=== PATIENT | female | born 1955 ===

== ENCOUNTER 2022-09-20 14:43 | Outpatient (REF) | payer OTHER, SELFPAY ==
[2022-09-20 16:54] LABS: MANUAL DIFF FLAG NO
[2022-09-20 16:55] LABS: Basophils Absolute Auto 0.1 X10*3/uL (0.0-0.2); Basophils Percent Auto 1.5 % (0-2); Eosinophils Absolute Auto 0.1 X10*3/uL (0.0-0.4); Eosinophils Percent Auto 1.7 % (0-4); Hematocrit 44.3 % (37.0-47.0); Hemoglobin 14.6 g/dl (12.0-16.0); Imm Gran Abs Auto 0.01 X10*3/uL (0.00-0.03); Imm Gran Pct Auto 0.2 % (0.0-0.4); Lymphocytes Percent Auto 37.4 % (20-40); Mean Corpuscular Volume 91.2 fL (80.0-98.0); Mean Platelet Volume 11.5 fL (9.4-12.3); Monocytes Absolute Auto 0.4 X10*3/uL (0.1-1.2); Monocytes Percent Auto 7.4 % (2-11); Neutrophils Absolute Auto 2.8 x10*3/uL (2.0-8.3); Neutrophils Percent Auto 51.8 % (45-73); Platelet Count 280 X10*3/uL (160-400); Red Blood Count 4.86 X10*6/uL (4.20-5.50); Red Cell Distribution Width 13.5 % (11.0-16.0); White Blood Count 5.4 X10*3/uL (4.8-10.8)
[2022-09-20 17:32] LABS: Alanine Aminotransferase 16 U/L (0-31); Albumin Level 4.5 g/dL (3.5-5.0); Alkaline Phosphatase 80 U/L (39-117); Anion Gap 15 (12-20); Aspartate Amino Transferase 24 U/L (5-31); Bilirubin Total 0.5 mg/dL (0.0-1.0); Blood Urea Nitrogen 17 mg/dL (9-16); Calcium 9.8 mg/dL (8.4-10.2); Carbon Dioxide 25 mmol/L (22-29); Chloride 105 mmol/L (96-108); Cholesterol 221 mg/dL; Estimated Glomerular Filt Rate > 60; Glucose Random 87 mg/dL (60-115); HDL Cholesterol 62 mg/dL; LDL Cholesterol Calculated 145 mg/dl; Potassium 4.1 mmol/L (3.3-5.1); Sodium 141 mmol/L (135-145); Total Protein 7.4 g/dL (6.5-8.0); Triglycerides 71 mg/dL
[2022-09-20 17:48] LABS: Thyroid Stimulating Hormone 1.06 uIU/mL (0.32-4.0)
== END 2022-09-20 14:44 | disposition home or self-care (01) ==
LOC: HO.HMGCLDS 14:43
PROVIDERS: Visit Provider Internal Medicine
DX: Z00.00 Encounter for general adult medical examination without abnormal findings (principal); E03.8 Other specified hypothyroidism; F31.9 Bipolar disorder, unspecified; I10 Essential (primary) hypertension; F43.12 Post-traumatic stress disorder, chronic; Z72.0 Tobacco use
CPT/HCPCS: 36415; 80053; 80061; 84443; 85025

== ENCOUNTER 2024-01-04 16:04 | Outpatient (AMB) | payer OTHER, SELFPAY ==
--- NOTE | 2024-01-04 16:06 | A.OFFPC_ITS ---
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 Savings Teller Required: No Accompanied by: Daughter Allergies Penicillins Allergy (Severe, Verified 01/04/24 16:50) Hives Medication List - Last Reconciled 01/04/24 by Camacho Dickey MD amlodipine 2.5 mg PO DAILY aspirin (Aspirin Childrens) 81 mg PO DAILY atorvastatin 80 mg PO BEDTIME levothyroxine 75 mcg PO DAILY paroxetine HCl 20 mg PO DAILY Tobacco use date assessed: 01/04/24 Fall risk assessment: 1 Fall in past year Last assessed Fall Risk: 01/04/24 Dental Screening Dental Screen Date: 01/04/24 Did you have a dental visit in the last 12 months?: No Did you have a dental problem in the last 6 months where you did not have access to dental care?: No Was dental information given to patient?: Patient has dentist HPI Research 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 and also had some involvement of her right eye, as she reports that she is still having double vision and is currently wearing an eye patch on her right eye to help minimize her symptoms Recalls that she was at a family gathering early last month when she did not feel good (thinks she had a headache, among other issues) and went and lied down for the remainder of the gathering She was eventually brought home that evening and she supposedly went straight to bed Her daughter states that she could not reach patient the next day and went over to her house to check on her and found her in bed Relates that patient told her she tried to get up earlier that day and felt like she was shaking and bouncing all over so she went back to lying down Her daughter noted that her mother did not look good at the time (felt that her eyes looked glazed over) and she brought her to the ER at [facility], where work ups revealed that she had a CVA - was told that she had a bleed into her brain She supposedly spent the next week (from 11/29/23 to 12/06/23) at the hospital and was then transferred to short-term rehab at [facility] where she spent the next week (12/06/23 to 12/13/23) doing physical therapy She continues to get physical therapy at home presently She has a follow up appointment with neuro-ophthalmology at [facility] in a couple of weeks on 01/21/2024 and has an upcoming appointment with cardiology as well, presumably to work her up further to find out the exact etiology of her recent CVA She is presently on low dose Aspirin 81 mg QD, high dose statin Tx with Atorvastatin 80 mg QD, Amlodipine 2.5 mg QD, and Levothyroxine 75 mcg QD - states that she will need her Levothyroxine Rx refilled today States that her TFTs were just checked last month and came out okay Her Paroxetine was also raised from her previous dose of 10 mg to 20 mg QD Patient states that she currently feels okay but still has residual right-sided weakness and diplopia She denies any headaches or dizziness Denies any chest pains, no SOB No nausea/vomiting, no abdominal pain No change in bowel habits noted [facility] Medical History (Updated 01/04/24 @ 19:14 by Camacho Dickey MD) Overweight (BMI 25.0-29.9) Depression Acquired hypothyroidism Pure hypercholesterolemia Essential hypertension Hemiparesis affecting right side as late effect of cerebrovascular accident (CVA) CVA (cerebral vascular accident) Surgical History (Updated 01/04/24 @ 19:02 by Camacho Dickey MD) No pertinent past surgical history Family History (Updated 01/04/24 @ 19:02 by Camacho Dickey MD) Other Family history non-contributory Social History Housing: House Patient Tobacco Use Status: Former Tobacco user Tobacco use type: Cigarette Years Smoked: 25+ service: No Current occupational status: disabled Cognitive needs: Yes (cane ) Hearing needs: No Vision needs: Yes Questionnaire PHQ-9 Over the last 2 weeks, how often have you been bothered by any of the following problems? 1. Little interest or pleasure in doing things: not at all 2. Feeling down, depressed, or hopeless: not at all 3. Trouble falling or staying asleep, or sleeping too much: not at all 4. Feeling tired or having little energy: not at all 5. Poor appetite or overeating: not at all 6. Feeling bad about yourself - or that you are a failure or have let yourself or your family down: not at all 7. Trouble concentrating on things, such as reading the newspaper or watching television: not at all 8. Moving or speaking so slowly that other people could have noticed. Or the opposite - being so fidgety or restless that you have been moving around a lot more than usual: not at all 9. Thoughts that you would be better off or of hurting yourself in some way: not at all Total score: 0 Depression Screening Interpretation: Negative (is on Rx) Depression Screening Done: Yes 92301 - PHQ-9 Billing: Yes Source: Developed by Drs. Edmundo Ortiz, Joanna Steen, Shree Crum and colleagues, with an educational rani from [employer]. Thrive Questionnaire Date Thrive assessed: 01/04/24 I am a: Patient What is your living situation today?: I have a steady place to live Within the past 12 months, did the food you bought not last and you didn't have the money to get more?: Never true Within the past 12 months, did you worry whether your food would run out before you got money to buy more?: Never true Do you have trouble paying for medicines?: No Do you have trouble getting transportation to medical appointments?: No Do you have trouble paying your heating and electricity bill?: No Do you have trouble taking care of your child, family member or friend?: No Do you have trouble with day-to-day activities such as bathing, preparing meals, shopping, managing finances, etc.?: No Are you currently unemployed and looking for a job?: No Are you interested in more education?: No Please select the resources that you would like help with: None Currently or been in a relationship where the following occur: No concerns reported THRIVE Score: 0 AUDIT C Alcohol Use Questionnaire (AUDIT-C) 1. How often do you have a drink containing alcohol?: Never 2. How many drinks containing alcohol do you have on a typical day when you are drinking?: 1 or 2 (0) 3. How often do you have six or more drinks on one occasion?: Never Total Score: 0 Score Reviewed/Action Taken: Yes WANDA-7 AMB Questionnaire WANDA-7 Date WANDA - 7 assessed: 01/04/24 Feeling nervous, anxious, or on edge: 0 = Not at all Not being able to stop or control worryin = Not at all Worrying too much about different things: 0 = Not at all Trouble relaxin = Not at all Being so restless that it is hard to sit still: 0 = Not at all Becoming easily annoyed or irritable: 0 = Not at all Feeling afraid as if something awful might happen: 0 = Not at all Total WANDA-7 score (0-4 normal; 5-9 mild; 10-14 moderate; 15-21 severe): 0 Source: Developed by Drs. Edmundo Ortiz, Joanna Steen, Shree Crum and colleagues, with an educational rani from [employer]. WANDA-7 Assessment Billing WANDA-7 Assessment Tool: WANDA-7 Assessment 18797 Review of Systems Const Denies chills, Denies fatigue, Denies fever(s) and Denies headache(s) Eyes Reports diplopia ENT Denies dysphagia, Denies dizziness, Denies otalgia, Denies headache(s), Denies neck pain, Denies odynophagia and Denies sore throat Card Denies chest pain, Denies palpitations and Denies dyspnea Resp Denies cough and Denies dyspnea GI Denies abdominal pain, Denies constipation, Denies dysphagia, Denies heartburn, Denies diarrhea, Denies nausea, Denies odynophagia and Denies vomiting Denies difficulty voiding, Denies nocturia and Denies dysuria Musc Denies back pain and Denies neck pain Skin/Breast Denies rash Neuro Details: (+) right hemiparesis Denies dizziness and Denies headache(s) Endo Denies fatigue and Denies palpitations Physical exam (Primary Care) Vital Signs: Last Vital Signs Pulse 76 01/04/24 16:12 BP 112/76 01/04/24 16:12 Pulse Ox 95 01/04/24 16:12 Oxygen Delivery Method Room Air 01/04/24 16:12 BMI result Body Mass Index 27.1 Tobacco/Smoking Status: Tobacco use Status Tobacco use date assessed 01/04/24 01/04/24 16:10 Patient Tobacco Use Status Former Tobacco user 01/04/24 16:18 Tobacco use type Cigarette 01/04/24 16:18 PHQ-9: PHQ-9 Score PHQ-9: Total score 0 01/04/24 17:08 Depression Screening Interpretation: Negative (is on Rx) Thrive Assessment: Date of Thrive Assessment Date Thrive assessed 01/04/24 01/04/24 16:10 Currently or been in a relationship where the following occur: No concerns reported Const General: no acute distress and alert Orientation/consciousness: patient oriented x3 HENMT Ears: TM's normal bilaterally and EAC's normal Throat: Yes posterior oropharynx normal and Yes tonsils normal (no TP congestion) Eyes Other: (+) eye patch over the right eye Neck Neck: Yes no lymphadenopathy and Yes supple Thyroid: Thyroid normal Resp Auscultation: clear to auscultation bilaterally, no rales and no wheezes Cardio Rate: regular rate Rhythm: regular rhythm Heart sounds: Murmur heart sound present (?) systolic soft (?) and I/ GI Palpation (GI): Soft to palpation and nontender Auscultation: normal bowel sounds General: Yes no CVA tenderness Back/Spine/Pelvis Back: no CVA tenderness Skin General skin exam: no rashes or lesions noted Neuro Other: (+) right-sided hemiparesis General: patient oriented x3 Cognition (Neuro): normal cognition Extrem General: Yes no clubbing, cyanosis or edema Assessment and Plan Assessment & Plan (1) CVA (cerebral vascular accident): Comment: currently still has right-sided hemiparesis and diplopia (involving the right eye) Code(s): I63.9 - Cerebral infarction, unspecified Qualifiers: CVA mechanism: unspecified Qualified Code(s): I63.9 - Cerebral infarc tion, unspecified Plan: S/P CVA a month ago in November 2023 - patient apparently suffered a hemorrhagic CVA and now has residual diplopia (involving the right eye) as well as right-sided hemiparesis She will be seeing cardiology in a week or two for further evaluation of the etiology of her CVA and she has appointment as well with neuro-ophthalmology for her right eye issues Patient currently appears to have a soft systolic murmur (?) on auscultation - could be just a flow murmur and this may be clarified once we receive her records from [facility] (which presumably would include an echocardiogram) for review Continue Aspirin 81 mg QD Will refer her as well to neurology for further evaluation and management (2) Hemiparesis affecting right side as late effect of cerebrovascular accident (CVA): Code(s): I69.351 - Hemiplegia and hemiparesis following cerebral infarction affecting right dominant side Plan: Patient went to short-term rehab at [facility] from 12/07/23 to 12/13/23 and now continues to receive home physical therapy through [facility] (3) Essential hypertension: Code(s): I10 - Essential (primary) hypertension Plan: Reinforced low sodium diet - goal is systolic BP of 120 mm or less Continue Amlodipine 2.5 mg QD (4) Pure hypercholesterolemia: Code(s): E78.00 - Pure hypercholesterolemia, unspecified Plan: Reinforced low cholesterol diet Continue Atorvastatin 80 mg QD Will have patient recheck her labs and fasting lipids in 2 to 3 months for follow up (5) Acquired hypothyroidism: Code(s): E03.9 - Hypothyroidism, unspecified Plan: Patient states that she was advised her TFTs done at [facility] last month came out normal Continue Levothyroxine 75 mcg QD - Rx refilled Will recheck his TFTs in 2 to 3 months for follow up (6) Depression: Code(s): F32.A - Depression, unspecified Qualifiers: Depression Type: major depressive disorder Major depression recurrence: recurrent Active/Remission status: currently active Major depression episode severity: unspecified Qualified Code(s): F33.9 - Major depressive disorder, recurrent, unspecified Plan: Continue Paroxetine 20 mg QD (7) Overweight (BMI 25.0-29.9): Code(s): E66.3 - Overweight Plan: Reinforced diet; exercise (and weight loss) may be unrealistic at this time given patient's recent CVA and right-hemiparesis although she is getting home physical therapy regularly Plan Follow up in 2 to 3 months Her physical therapy was again deferred today and will schedule it at a later date, once all of patient's acute issues, including her recent CVA, are addressed adequately Orders: Orders Comprehensive [place]. Panel Fast 2 Months E78.00 - Pure hypercholesterolemia, unspecified UA CC w/rflx Micro + Cult 2 Months R30.0 - Dysuria Vitamin D 25-OH Total 2 Months E55.9 - Vitamin D deficiency, unspecified Free T4 (Free Thyroxine) 2 Months E03.9 - Hypothyroidism, unspecified Thyroid Stimulating Hormone 2 Months E03.9 - Hypothyroidism, unspecified Complete Blood Count Auto Diff 2 Months D64.9 - Anemia, unspecified Lipid Panel 2 Months E78.00 - Pure hypercholesterolemia, unspecified Referrals Neurology Referral I63.9 - Cerebral infarction, unspecified, I69.351 - Hemiplegia and hemiparesis following cerebral infarction affecting right dominant side Medications: New levothyroxine 75 mcg PO DAILY 90 tabs 1RF 90 days Coding Level of Care Code New Pt Level 4 (80183) Complex EM visit Add On G2211 Diagnoses Cerebrovascular accident (CVA), unspecified mechanism I63.9 CVA mechanism: unspecified Hemiparesis affecting right side as late effect of cerebrovascular accident (CVA) I69.351 Essential hypertension I10 Pure hypercholesterolemia E78.00 Acquired hypothyroidism E03.9 Episode of recurrent major depressive disorder, unspecified depression episode severity F33.9 Depression Type: major depressive disorder Major depression recurrence: recurrent Active/Remission status: currently active Major depression episode severity: unspecified Overweight (BMI 25.0-29.9) E66.3 Additional Codes WANDA-7 Assessment Billing - WANDA-7 Assessment Tool: WANDA-7 Assessment 92323 ([id number])
[2024-01-04 16:12] VITALS: BP 112/76; PULSE 76; O2SAT 95; BMI 27.1
== END 2024-01-04 17:14 | disposition home or self-care (01) ==
PROVIDERS: PCP Internal Medicine; Visit Provider Internal Medicine
DX: I69.351 Hemiplegia and hemiparesis following cerebral infarction affecting right dominant side (principal); F33.9 Major depressive disorder, recurrent, unspecified; I10 Essential (primary) hypertension; E78.00 Pure hypercholesterolemia, unspecified; E03.9 Hypothyroidism, unspecified; E66.3 Overweight
CPT/HCPCS: 99204; G2211

== ENCOUNTER 2024-02-11 14:33 | Outpatient (AMB) | payer OTHER, SELFPAY ==
[2024-02-11 14:39] VITALS: BP 110/62; PULSE 61; BMI 27.5
--- NOTE | 2024-02-11 14:39 | A.OFFVIS_ITS ---
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 [employer] Supervisor Required: No Accompanied by: Daughter Allergies Penicillins Allergy (Severe, Verified 01/18/24 12:11) Hives Medication List - Last Reconciled 02/11/24 by Liban Saleem MD amlodipine 2.5 mg PO DAILY aspirin (Aspirin Childrens) 81 mg PO DAILY atorvastatin 80 mg PO BEDTIME levothyroxine 75 mcg PO DAILY 90 days paroxetine HCl 20 mg PO DAILY HPI Comments Details: Thank you for referring Aure in cardiology consultation today for evaluation for cardioembolic CVA. Patient was admitted [facility] with altered mental status and speech abnormality as per the daughter and subsequently found to have bilateral as well as posterior circulation CVA. She was subsequently seen by Neurology and there was concern raised for cardioembolic CVA. She underwent echocardiogram at outside hospital which has been reported to have no significant abnormality. She has prior history of hypertension. She denies any history of irregular heartbeat or palpitations or fast heart rate. Denies any symptoms of chest pain. She is currently still recuperating from a CVA and still has impaired visual abnormality as well as some weakness in his left lower extremity. [facility] Medical History Overweight (BMI 25.0-29.9) Depression Acquired hypothyroidism Pure hypercholesterolemia Essential hypertension Hemiparesis affecting right side as late effect of cerebrovascular accident (CVA) CVA (cerebral vascular accident) Surgical History No pertinent past surgical history Family History Other Family history non-contributory Social History Housing: House Patient Tobacco Use Status: Former Tobacco user Tobacco use type: Cigarette Years Smoked: 25+ service: No Current occupational status: disabled Cognitive needs: Yes (cane ) Hearing needs: No Vision needs: Yes Review of Systems Const Denies chills, Denies fatigue, Denies fever(s), Denies frequent falls, Denies weakness, Denies weight gain and Denies weight loss ENT Denies dizziness Card Denies chest pain, Denies leg edema, Denies lightheadedness, Denies palpitations, Denies dyspnea and Denies dyspnea on exertion Resp Denies cough, Denies dyspnea and Denies dyspnea on exertion GI Denies hematochezia Musc Denies abnormal gait, Denies muscle weakness, Denies numbness, Denies radiating pain into limb and Denies tingling Neuro Denies abnormal gait, Denies dizziness, Denies frequent falls, Denies numbness, Denies tingling and Denies weakness Endo Denies fatigue and Denies palpitations Physical Exam Vital Signs: Last Vital Signs Pulse 61 02/11/24 14:39 BP 110/62 02/11/24 14:39 BMI result Body Mass Index 27.5 Const General: cooperative, comfortable, no acute distress, alert and awake Nutritional Appearance: overweight Orientation/consciousness: patient oriented x3 Limitations: ambulation with cane HEENT Head: Yes normocephalic, Yes atraumatic and Yes other (Wearing an eye patch on the left eye) Neck Neck: Yes trachea midline, Yes supple and Yes no JVD Resp Effort & Inspection: normal respiratory effort Auscultation: clear to auscultation bilaterally Cardio Jugular venous distension: no JVD Palpation: normal PMI Rate: regular rate Rhythm: regular rhythm Heart sounds: S1 normal heart sound present, S2 normal heart sound present, no click, no gallops, no murmurs and no rubs GI Auscultation: normal bowel sounds Skin General skin exam: no rashes or lesions noted Neuro General: patient oriented x3 and other (Right hemiparesis) Extrem General: Yes no clubbing, cyanosis or edema Office Procedures EKG Details: EKG shows normal sinus rhythm with normal EKG [id number], Complete Assessment & Plan Assessment & Plan (1) CVA (cerebral vascular accident): Comment: currently still has right-sided hemiparesis and diplopia (involving the right eye) Code(s): I63.9 - Cerebral infarction, unspecified Category: Medical Qualifiers: CVA mechanism: unspecified Qualified Code(s): I63.9 - Cerebral infarction, unspecified Plan: CVA with involvement multiple cerebral circulations, suspected to be cardioembolic. Echocardiogram as reported from neurology note was within normal limits. Consider SANJU. However given her age and risk factors atrial fibrillation is likely. She has no obvious symptoms although we discussed association of atrial fibrillation with stroke. It is reasonable to pursue implantable loop recorder placement. This was discussed with her. Rationale for implantable loop recorder was discussed. She understands agrees. If she h as any evidence of atrial fibrillation she would strongly benefit from anticoagulation therapy. We discussed the risks, benefits, alternatives to placement of implantable loop recorder. She understands agrees. Will be scheduled in near future. Will follow-up after implantable loop recorder placement for wound check. Coding Level of Care Code New Pt Level 4 (01984) Diagnoses Cerebrovascular accident (CVA), unspecified mechanism I63.9 CVA mechanism: unspecified CPT Codes EKG - CPT: 13831-[id number], Complete ([id number])
== END 2024-02-11 15:06 | disposition home or self-care (01) ==
PROVIDERS: PCP Internal Medicine; Visit Provider Internal Medicine Cardiovascular Disease
DX: I63.9 Cerebral infarction, unspecified (principal)
CPT/HCPCS: 93010; 99204

== ENCOUNTER → 2024-02-11 14:33 | Outpatient (BNVA) | payer OTHER, SELFPAY | PROVIDERS: PCP Internal Medicine; Visit Provider Internal Medicine Cardiovascular Disease | DX: I69.351 Hemiplegia and hemiparesis following cerebral infarction affecting right dominant side (principal); I69.398 Other sequelae of cerebral infarction; H53.2 Diplopia | CPT/HCPCS: 93005 ==

== ENCOUNTER 2024-02-22 | Outpatient (REF) | payer MEDICARE, SELFPAY ==
[2024-02-22 14:47] VITALS: BP 130/58; PULSE 64; RESP 19; TEMP 36.4; O2SAT 93
--- NOTE | 2024-02-22 15:14 | PM.OP ---
Brief Operative Note Date of Service: 02/22/24 Pre-op diagnosis: CVA Post-op diagnosis: same Procedure: Implantation of loop recorder Implants: After obtaining informed consent patient was brought to the minor surgery room and laid flat on the operating table. Patient is precordial area was then prepped and draped in a sterile fashion. Patient was then administered 2% lidocaine with epinephrine intradermally and subcutaneously in the 4th intercostal space. A [employer] LINQ implantable loop recorder with serial number [id number] was then implanted in the subcutaneous space using modified Seldinger technique. Measured R-waves were 0.57 mV. The wound was then closed with Steri-Strips and pressure dressing applied. Patient tolerated the procedure well Surgeon: Liban Saleem MD Anesthesia: local Was an Supervisor [employer] used for this Procedure?: No Estimated blood loss (mL): 1 Pathology: none sent Condition: stable Disposition: same day
== END 2024-02-22 00:01 ==
LOC: HO.MS
PROVIDERS: PCP Internal Medicine; Visit Provider Internal Medicine Cardiovascular Disease
PROC: (CPT 33285; principal; 2024-02-22 14:30)
DX: I63.9 Cerebral infarction, unspecified (principal)
CPT/HCPCS: 33285; C1764

== ENCOUNTER → 2024-02-22 14:30 | Outpatient (BNV) | payer MEDICARE, SELFPAY | PROVIDERS: PCP Internal Medicine; Visit Provider Internal Medicine Cardiovascular Disease | DX: I63.9 Cerebral infarction, unspecified (principal) | CPT/HCPCS: 33285 ==

== ENCOUNTER 2024-02-28 15:17 | Outpatient (AMB) | payer MEDICARE, SELFPAY ==
[2024-02-28 15:22] VITALS: BP 130/78; PULSE 83; BMI 28.2
--- NOTE | 2024-02-28 15:22 | MHC.OFFVIS ---
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 Today she reports that her ILR site is feeling fine. She has not removed the original dressing. She does not notice any heart palpitations. No lightheadedness, presyncope, syncope. No chest discomfort at rest or with activity. No shortness of breath, PND, orthopnea or edema. She still has issues with left lower extremity weakness and ambulates with a cane. She has a patch over her left eye but tells me that her vision is improving. She states when she ambulates she tends to veer towards the right. She is asking about riding her motorcycle and informed that is definitely not recommended at this time. Daughter present. [facility] Medical History Overweight (BMI 25.0-29.9) Depression Acquired hypothyroidism Pure hypercholesterolemia Essential hypertension Hemiparesis affecting right side as late effect of cerebrovascular accident (CVA) CVA (cerebral vascular accident) Surgical History No pertinent past surgical history Family History Other Family history non-contributory Social History Housing: House Patient Tobacco Use Status: Former Tobacco user Tobacco use type: Cigarette Years Smoked: 25+ service: No Current occupational status: disabled Cognitive needs: Yes (cane ) Hearing needs: No Vision needs: Yes Review of Systems Const All systems reviewed & are unremarkable except as noted in HPI and below Denies weakness ENT Details: visual disturbance - patch over left eye Denies dizziness Card Denies chest pain, Denies chest pain with activity, Denies syncope, Denies rapid heart rate, Denies pedal edema, Denies edema, Denies leg edema, Denies lightheadedness, Denies palpitations, Denies dyspnea, Denies dyspnea on exertion and Denies orthopnea Resp Denies cough, Denies dyspnea and Denies dyspnea on exertion GI Denies hematochezia and Denies change in stool character Musc Details: left leg weakness Denies abnormal gait, Denies muscle cramps, Denies muscle weakness, Denies numbness, Denies radiating pain into limb and Denies tingling Neuro Denies abnormal gait, Denies dizziness, Denies syncope, Denies numbness, Denies tingling and Denies weakness Endo Denies palpitations Physical Exam Vital Signs: Last Vital Signs Pulse 83 02/28/24 15:22 BP 130/78 02/28/24 15:22 BMI result Body Mass Index 28.2 Const Other: patch over left eye General: cooperative, healthy appearing, comfortable and no acute distress Orientation/consciousness: patient oriented x3 Neck Neck: Yes normal visual inspection and Yes no JVD Resp Effort & Inspection: normal respiratory effort Auscultation: clear to auscultation bilaterally, no crackles, no rales, no rhonchi and no wheezes Cardio Jugular venous distension: no JVD Rate: regular rate Rhythm: regular rhythm Heart sounds: S1 normal heart sound present, S2 normal heart sound present, no murmurs and no rubs Neuro General: patient oriented x3 Extrem General: Yes normal to inspection Psych Appearance: grossly normal Mental Status: mental status grossly normal Speech and movement: Normal speech and movement present Assessment & Plan Assessment & Plan (1) Visit for wound check: Code(s): Z51.89 - Encounter for other specified aftercare Category: Medical Plan: Medtronic loop recorder implanted by Dr. Saleem on 02/22/2024. Original dressing intact over the site left medial chest. Gently removed and Steri-Strips are intact. Gently removed with visibly intact and well approximated incision line. No redness, swelling, drainage. Left open to the air. Instructed to call if any concerns with the site. She has her remote monitoring at her bedside. We will monitor her device remotely. Cardiology follow-up 6 months, sooner if needed. (2) Essential hypertension: Code(s): I10 - Essential (primary) hypertension Category: Medical Plan: Normal range at this time. She continues on amlodipine. No medication changes made. (3) CVA (cerebral vascular accident): Comment: currently still has right-sided hemiparesis and diplopia (involving the right eye) Code(s): I63.9 - Cerebral infarction, unspecified Category: Medical Qualifiers: CVA mechanism: unspecified Qualified Code(s): I63.9 - Cerebral infarction, unspecified Plan: Recent CVA involving multiple territories suspected to be cardioembolic. No history of atrial fibrillation. Patient denies any heart palpitations. Implanted loop recorder placed as above to monitor for the presence of PAF. At this time she is on aspirin 81 mg daily and atorvastatin. If AFib is identified then full anticoagulation will be indicated. Plan Time spent on chart review, documentation, interview and assessment Coding Level of Care Code Est Pt Level 2 (26205) Diagnoses Visit for wound check Z51.89 Essential hypertension I10 Cerebrovascular accident (CVA), unspecified mechanism I63.9 CVA mechanism: unspecified Time Spent (min) 14
== END 2024-02-28 15:37 | disposition home or self-care (01) ==
PROVIDERS: PCP Internal Medicine; Visit Provider Nurse Practitioner Family
DX: Z51.89 Encounter for other specified aftercare (principal); I10 Essential (primary) hypertension; I63.9 Cerebral infarction, unspecified
CPT/HCPCS: 99212

== ENCOUNTER → 2024-02-28 15:17 | Outpatient (BNVA) | payer MEDICARE, SELFPAY | PROVIDERS: PCP Internal Medicine; Visit Provider Nurse Practitioner Family | DX: I10 Essential (primary) hypertension (principal); E78.5 Hyperlipidemia, unspecified; Z86.73 Personal history of transient ischemic attack (TIA), and cerebral infarction without residual deficits; Z51.89 Encounter for other specified aftercare; Z96.89 Presence of other specified functional implants | CPT/HCPCS: 99212 ==

== ENCOUNTER 2024-04-10 11:21 | Outpatient (AMB) | payer MEDICARE, SELFPAY ==
--- NOTE | 2024-04-10 11:21 | MHC.PC.OV ---
Intake Visit Reasons: med review/ discuss [facility] Paper Grader Required: No Accompanied by: Self / Same As Patient Allergies Penicillins Allergy (Severe, Verified 04/10/24 11:57) Hives Medication List - Last Reconciled 04/10/24 by Camacho Dickey MD amlodipine 2.5 mg PO DAILY 90 days aspirin (Aspirin Childrens) 81 mg PO DAILY 90 days atorvastatin 80 mg PO BEDTIME 90 days levothyroxine 75 mcg PO DAILY 90 days paroxetine HCl 20 mg PO DAILY 90 days Tobacco use date assessed: 04/10/24 Fall risk assessment: 2 + Falls in past year Last assessed Fall Risk: 04/10/24 Dental Screening Dental Screen Date: 04/10/24 Did you have a dental visit in the last 12 months?: No Did you have a dental problem in the last 6 months where you did not have access to dental care?: No Was dental information given to patient?: Patient has dentist HPI med review/ discuss [facility] HPI Details Patient's follow up visit / consultation today is done over video conference (iPhone/iPad/gamigo/YouDo) - this is a TELEHEALTH visit Patient's current medications have been reviewed and verified with patient and/or caregiver/proxy and have been updated accordingly in the medication list Patient still has the residual right-sided weakness and diplopia that she's had since her CVA back in November 2023 She was seen by Neurology a couple of months ago and was recommended to undergo cardiology evaluation for possible cardiac etiology of her CVA; was advised to continue on her low dose Aspirin daily and to patch her eyes alternately to help alleviate her symptoms of diplopia Patient has subsequently had a loop recorder placed back on 02/22/2024 and she is currently still undergoing monitoring by Cardiology States that she currently feels okay She denies any headaches or dizziness Denies any chest pains, no SOB No nausea/vomiting, no abdominal pain No change in bowel habits noted She was supposed to get some follow up labs done prior to her appointment today but she was not able to do so [facility] Medical History Overweight (BMI 25.0-29.9) Depression Acquired hypothyroidism Pure hypercholesterolemia Essential hypertension Hemiparesis affecting right side as late effect of cerebrovascular accident (CVA) CVA (cerebral vascular accident) Surgical History No pertinent past surgical history Family History Other Family history non-contributory Social History Housing: House Patient Tobacco Use Status: Former Tobacco user Tobacco use type: Cigarette Years Smoked: 25+ e-Cigarette/Vaping Use: Never Used service: No Current occupational status: disabled Current occupational exposures/hazards: No Cognitive needs: Yes (cane ) Hearing needs: No Vision needs: Yes Questionnaire PHQ-9 Over the last 2 weeks, how often have you been bothered by any of the following problems? 1. Little interest or pleasure in doing things: not at all 2. Feeling down, depressed, or hopeless: not at all 3. Trouble falling or staying asleep, or sleeping too much: not at all 4. Feeling tired or having little energy: not at all 5. Poor appetite or overeating: not at all 6. Feeling bad about yourself - or that you are a failure or have let yourself or your family down: not at all 7. Trouble concentrating on things, such as reading the newspaper or watching television: not at all 8. Moving or speaking so slowly that other people could have noticed. Or the opposite - being so fidgety or restless that you have been moving around a lot more than usual: not at all 9. Thoughts that you would be better off or of hurting yourself in some way: not at all Total score: 0 Depression Screening Interpretation: Negative (is on Rx) Depression Screening Done: Yes 43494 - PHQ-9 Billing: Yes Source: Developed by Drs. Edmundo Ortiz, Joanna Steen, Shree Crum and colleagues, with an educational rani from [employer] Thrive Questionnaire Date Thrive assessed: 04/10/24 I am a: Patient What is your living situation today?: I have a steady place to live Within the past 12 months, did the food you bought not last and you didn't have the money to get more?: Never true Within the past 12 months, did you worry whether your food would run out before you got money to buy more?: Never true Do you have trouble paying for medicines?: No Do you have trouble getting transportation to medical appointments?: No Do you have trouble paying your heating and electricity bill?: No Do you have trouble taking care of your child, family member or friend?: No Do you have trouble with day-to-day activities such as bathing, preparing meals, shopping, managing finances, etc.?: No Are you currently unemployed and looking for a job?: No Are you interested in more education?: No Please select the resources that you would like help with: None Currently or been in a relationship where the following occur: No concerns reported THRIVE Score: 0 AUDIT C Alcohol Use Questionnaire (AUDIT-C) 1. How often do you have a drink containing alcohol?: Never 3. How often do you have six or more drinks on one occasion?: Never Total Score: 0 Score Reviewed/Action Taken: Yes WANDA-7 AMB Questionnaire WANDA-7 Date WANDA - 7 assessed: 04/10/24 Feeling nervous, anxious, or on edge: 0 = Not at all Not being able to stop or control worryin = Not at all Worrying too much about different things: 0 = Not at all Trouble relaxin = Not at all Being so restless that it is hard to sit still: 0 = Not at all Becoming easily annoyed or irritable: 0 = Not at all Feeling afraid as if something awful might happen: 0 = Not at all Total WANDA-7 score (0-4 normal; 5-9 mild; 10-14 moderate; 15-21 severe): 0 Source: Developed by Drs. Edmundo Ortiz, Joanna Steen, Shree Crum and colleagues, with an educational rani from [employer] WANDA-7 Assessment Billing WANDA-7 Assessment Tool: WANDA-7 Assessment 48397 Review of Systems Const Denies chills, Denies fatigue, Denies fever(s) and Denies headache(s) Eyes Reports diplopia ENT Denies dysphagia, Denies dizziness, Denies otalgia, Denies headache(s), Denies neck pain, Denies odynophagia and Denies sore throat Card Denies chest pain, Denies palpitations and Denies dyspnea Resp Denies cough and Denies dyspnea GI Denies abdominal pain, Denies constipation, Denies dysphagia, Denies heartburn, Denies diarrhea, Denies nausea, Denies odynophagia and Denies vomiting Denies difficulty voiding, Denies nocturia, Denies dysuria and Denies urinary urgency Musc Denies back pain and Denies neck pain Skin/Breast Denies rash Neuro Details: (+) mild right hemiparesis Denies dizziness and Denies headache(s) Endo Denies fatigue and Denies palpitations Physical exam (Primary Care) Vital Signs: Physical examination is not performed as visit / consultation today is done over videoconference - Telehealth visit All physical findings indicated here, if present, are as per patient's and / or caregivers / proxy's report and visual inspection over videoconference, if appropriate or applicable Tobacco/Smoking Status: Tobacco use Status Tobacco use date assessed 04/10/24 04/10/24 11:24 Patient Tobacco Use Status Former Tobacco user 04/10/24 11:24 Tobacco use type Cigarette 04/10/24 11:24 e-Cigarette/Vaping Use Never Used 04/10/24 11:24 PHQ-9: PHQ-9 Score PHQ-9: Total score 0 04/10/24 12:10 Depression Screening Interpretation: Negative (is on Rx) Thrive Assessment: Date of Thrive Assessment Date Thrive assessed 04/10/24 04/10/24 11:24 Currently or been in a relationship where the following occur: No concerns reported Telehealth Telehealth Telehealth Platform: Telephone ([employer]) Location of provider rendering services: practice address Location of patient: address on file Patient Identification confirmed using: Name, : Yes Telehealth method: video (Neronote) Patient verbally consented to treatment: Yes Patient verbally consented to billing insurance company: Yes Patient informed of any privacy concerns related to visit: Yes Minutes spent on Phone/Video with Pt.: 24 Coding Level of Care Code Tele Est Pt Level 4 (44861) Diagnoses Cerebrovascular accident (CVA), unspecified mechanism I63.9 CVA mechanism: unspecified Hemiparesis affecting right side as late effect of cerebrovascular accident (CVA) I69.351 Essential hypertension I10 Pure hypercholesterolemia E78.00 Acquired hypothyroidism E03.9 Episode of recurrent major depressive disorder, unspecified depression episode severity F33.9 Depression Type: major depressive disorder Major depression recurrence: recurrent Active/Remission status: currently active Major depression episode severity: unspecified Overweight (BMI 25.0-29.9) E66.3 Additional Codes WANDA-7 Assessment Billing - WANDA-7 Assessment Tool: WANDA-7 Assessment 00120 ([id number]) Assessment & Plan Assessment & Plan (1) CVA (cerebral vascular accident): Comment: currently still has right-sided hemiparesis and diplopia (involving the right eye) Code(s): I63.9 - Cerebral infarction, unspecified Category: Medical Qualifiers: CVA mechanism: unspecified Qualified Code(s): I63.9 - Cerebral infarction, unspecified Plan: S/P CVA in November 2023 - patient apparently suffered a hemorrhagic CVA and now still has residual diplopia (involving the right eye) as well as right-sided hemiparesis She was referred to and was seen by neurology a couple of months ago and was recommended to undergo further evaluation for possible cardiac etiology of her CVA with an implantable loop recorder Continue Aspirin 81 mg QD (2) Hemiparesis affecting right side as late effect of cerebrovascular accident (CVA): Code(s): I69.351 - Hemiplegia and hemiparesis following cerebral infarction affecting right dominant side Category: Medical Plan: Patient went to short-term rehab at [facility] from 12/07/23 to 12/13/23 and afterwards continued to receive home physical therapy through [facility] for a few weeks She has now completed her physical therapy sessions, which she states helped a lot (3) Essential hypertension: Code(s): I10 - Essential (primary) hypertension Category: Medical Plan: Reinforced low sodium diet - goal is systolic BP of 120 mm or less Continue Amlodipine 2.5 mg QD She is instructed to continue monitoring her blood pressure regularly (4) Pure hypercholesterolemia: Code(s): E78.00 - Pure hypercholesterolemia, unspecified Category: Medical Plan: Patient was not able to get her previously ordered labs done prior to her visit today Reinforced low cholesterol diet Continue Atorvastatin 80 mg QD Will have patient recheck her labs and fasting lipids in 3 months for follow up - she has been advised that she really needs to get her labs done before her next appointment as she has not had any labs done since August 2022 and we need to know if her current meds need further dose adjustment or not (5) Acquired hypothyroidism: Code(s): E03.9 - Hypothyroidism, unspecified Category: Medical Plan: Continue Levothyroxine 75 mcg QD Will recheck his TFTs in 3 months for follow up (6) Depression: Code(s): F32.A - Depression, unspecified Category: Medical Qualifiers: Depression Type: major depressive disorder Major depression recurrence: recurrent Active/Remission status: currently active Major depression episode severity: unspecified Qualified Code(s): F33.9 - Major depressive disorder, recurrent, unspecified Plan: Continue Paroxetine 20 mg QD (7) Overweight (BMI 25.0-29.9): Code(s): E66.3 - Overweight Category: Medical Plan: Reinforced diet/exercise as tolerated/lose weight Plan Follow up in 3 months Orders: Orders Complete Blood Count Auto Diff 3 Months D64.9 - Anemia, unspecified Lipid Panel 3 Months E78.00 - Pure hypercholesterolemia, unspecified Thyroid Stimulating Hormone 3 Months E03.9 - Hypothyroidism, unspecified Vitamin D 25-OH Total 3 Months E55.9 - Vitamin D deficiency, unspecified Comprehensive [place]. Panel Fast 3 Months E78.00 - Pure hypercholesterolemia, unspecified Free T4 (Free Thyroxine) 3 Months E03.9 - Hypothyroidism, unspecified UA CC w/rflx Micro + Cult 3 Months R30.0 - Dysuria
== END 2024-04-10 13:24 | disposition home or self-care (01) ==
LOC: HO.HMCH 11:21
PROVIDERS: PCP Internal Medicine; Visit Provider Internal Medicine
DX: I69.351 Hemiplegia and hemiparesis following cerebral infarction affecting right dominant side (principal); F33.9 Major depressive disorder, recurrent, unspecified; I10 Essential (primary) hypertension; E78.00 Pure hypercholesterolemia, unspecified; E03.9 Hypothyroidism, unspecified; E66.3 Overweight

== ENCOUNTER → 2024-04-10 11:21 | Outpatient (BNVA) | payer MEDICARE, SELFPAY | PROVIDERS: PCP Internal Medicine; Visit Provider Internal Medicine | DX: I69.351 Hemiplegia and hemiparesis following cerebral infarction affecting right dominant side (principal); I10 Essential (primary) hypertension; E78.00 Pure hypercholesterolemia, unspecified; E03.9 Hypothyroidism, unspecified; F33.9 Major depressive disorder, recurrent, unspecified; E66.3 Overweight; Z79.899 Other long term (current) drug therapy | CPT/HCPCS: 96127 ==

== ENCOUNTER → 2024-04-28 23:59 | Outpatient (BNV) | payer MEDICARE, SELFPAY ==
--- NOTE | 2024-04-29 17:37 | MHC.OFFVIS ---
Intake Visit Reasons: Remote ILR check- [employer] Allergies Penicillins Allergy (Severe, Verified 04/10/24 11:57) Hives PFSH Medical History Overweight (BMI 25.0-29.9) Depression Acquired hypothyroidism Pure hypercholesterolemia Essential hypertension Hemiparesis affecting right side as late effect of cerebrovascular accident (CVA) CVA (cerebral vascular accident) Surgical History No pertinent past surgical history Family History Other Family history non-contributory Social History Housing: House Patient Tobacco Use Status: Former Tobacco user Tobacco use type: Cigarette Years Smoked: 25+ e-Cigarette/Vaping Use: Never Used service: No Current occupational status: disabled Current occupational exposures/hazards: No Cognitive needs: Yes (cane ) Hearing needs: No Vision needs: Yes Office Procedures Cardiac Device Check Cardiac Device Check Details: Remote implantable loop recorder report generated 04/28/2024. No atrial fibrillation or pauses noted. Rare PVCs noted [id number] Cardiac Interrogation, subcut cardiac rhythm monitor Procedure code (CPT) selection complete Assessment & Plan Assessment & Plan (1) Implantable loop recorder present: Code(s): Z95.818 - Presence of other cardiac implants and grafts Category: Medical Plan: See above Coding Level of Care Code Procedure Only Diagnoses Implantable loop recorder present Z95.818 CPT Codes Cardiac Device Check - Cardiac Device 16: [id number] Cardiac Interrogation, subcut cardiac rhythm monitor ([id number])
== END ==
PROVIDERS: PCP Internal Medicine; Visit Provider Internal Medicine Cardiovascular Disease
DX: Z45.09 Encounter for adjustment and management of other cardiac device (principal)
CPT/HCPCS: 93298

== ENCOUNTER → 2024-05-28 23:59 | Outpatient (BNV) | payer MEDICARE, SELFPAY ==
--- NOTE | 2024-06-04 15:26 | A.OFFVIS_ITS ---
Intake Visit Reasons: Remote ILR check- [employer] Allergies Penicillins Allergy (Severe, Verified 04/10/24 11:57) Hives PFSH Medical History Overweight (BMI 25.0-29.9) Depression Acquired hypothyroidism Pure hypercholesterolemia Essential hypertension Hemiparesis affecting right side as late effect of cerebrovascular accident (CVA) CVA (cerebral vascular accident) Surgical History No pertinent past surgical history Family History Other Family history non-contributory Social History Housing: House Patient Tobacco Use Status: Former Tobacco user Tobacco use type: Cigarette Years Smoked: 25+ e-Cigarette/Vaping Use: Never Used service: No Current occupational status: disabled Current occupational exposures/hazards: No Cognitive needs: Yes (cane ) Hearing needs: No Vision needs: Yes Office Procedures Cardiac Device Check Cardiac Device Check Details: Remote implantable loop recorder report generated 05/28/2024. No atrial fibrillation or pauses noted. Occasional PVCs noted, 0.5% burden [id number] Cardiac Interrogation, subcut cardiac rhythm monitor Procedure code (CPT) selection complete Assessment & Plan Assessment & Plan (1) Implantable loop recorder present: Code(s): Z95.818 - Presence of other cardiac implants and grafts Category: Medical Plan: See above Coding Level of Care Code Procedure Only Diagnoses Implantable loop recorder present Z95.818 CPT Codes Cardiac Device Check - Cardiac Device 16: [id number] Cardiac Interrogation, s ubcut cardiac rhythm monitor ([id number])
== END ==
PROVIDERS: PCP Internal Medicine; Visit Provider Internal Medicine Cardiovascular Disease
DX: Z45.09 Encounter for adjustment and management of other cardiac device (principal)
CPT/HCPCS: 93298

== ENCOUNTER → 2024-06-27 23:59 | Outpatient (BNV) | payer MEDICARE, SELFPAY ==
--- NOTE | 2024-07-07 16:21 | MHC.OFFVIS ---
Intake Visit Reasons: Remote ILR check- [employer] Allergies Penicillins Allergy (Severe, Verified 04/10/24 11:57) Hives PFSH Medical History Overweight (BMI 25.0-29.9) Depression Acquired hypothyroidism Pure hypercholesterolemia Essential hypertension Hemiparesis affecting right side as late effect of cerebrovascular accident (CVA) CVA (cerebral vascular accident) Surgical History No pertinent past surgical history Family History Other Family history non-contributory Social History Housing: House Patient Tobacco Use Status: Former Tobacco user Tobacco use type: Cigarette Years Smoked: 25+ e-Cigarette/Vaping Use: Never Used service: No Current occupational status: disabled Current occupational exposures/hazards: No Cognitive needs: Yes (cane ) Hearing needs: No Vision needs: Yes Office Procedures Cardiac Device Check Cardiac Device Check Details: Remote implantable loop recorder report generated 06/27/2023. No episodes of pauses or atrial fibrillation noted. PVC burden at 0.7% [id number] Cardiac Interrogation, subcut cardiac rhythm monitor Procedure code (CPT) selection complete Assessment & Plan Assessment & Plan (1) Implantable loop recorder present: Code(s): Z95.818 - Presence of other cardiac implants and grafts Category: Medical Plan: See above Coding Level of Care Code Procedure Only Diagnoses Implantable loop recorder present Z95.818 CPT Codes Cardiac Device Check - Cardiac Device 16: [id number] Cardiac Interrogation, subcut cardiac rhythm monitor ([id number])
== END ==
PROVIDERS: PCP Internal Medicine; Visit Provider Internal Medicine Cardiovascular Disease
DX: I49.3 Ventricular premature depolarization (principal); Z95.818 Presence of other cardiac implants and grafts
CPT/HCPCS: 93298

== ENCOUNTER → 2024-07-27 23:59 | Outpatient (BNV) | payer MEDICARE, SELFPAY ==
--- NOTE | 2024-07-30 11:42 | MHC.OFFVIS ---
Intake Visit Reasons: Remote ILR check- [employer] Allergies Penicillins Allergy (Severe, Verified 04/10/24 11:57) Hives PFSH Medical History Overweight (BMI 25.0-29.9) Depression Acquired hypothyroidism Pure hypercholesterolemia Essential hypertension Hemiparesis affecting right side as late effect of cerebrovascular accident (CVA) CVA (cerebral vascular accident) Surgical History No pertinent past surgical history Family History Other Family history non-contributory Social History Housing: House Patient Tobacco Use Status: Former Tobacco user Tobacco use type: Cigarette Years Smoked: 25+ e-Cigarette/Vaping Use: Never Used service: No Current occupational status: disabled Current occupational exposures/hazards: No Cognitive needs: Yes (cane ) Hearing needs: No Vision needs: Yes Office Procedures Cardiac Device Check Cardiac Device Check Details: Remote implantable loop recorder report generated 07/27/2024. No atrial fibrillation or pauses noted. Rare PVCs noted [id number] Cardiac Interrogation, subcut cardiac rhythm monitor Procedure code (CPT) selection complete Assessment & Plan Assessment & Plan (1) Implantable loop recorder present: Code(s): Z95.818 - Presence of other cardiac implants and grafts Category: Medical Plan: See above Coding Level of Care Code Procedure Only Diagnoses Implantable loop recorder present Z95.818 CPT Codes Cardiac Device Check - Cardiac Device 16: [id number] Cardiac Interrogation, subcut cardiac rhythm monitor ([id number])
== END ==
PROVIDERS: PCP Internal Medicine; Visit Provider Internal Medicine Cardiovascular Disease
DX: I49.3 Ventricular premature depolarization (principal); Z95.818 Presence of other cardiac implants and grafts
CPT/HCPCS: 93298

== ENCOUNTER → 2024-08-26 23:59 | Outpatient (BNV) | payer OTHER, SELFPAY ==
--- NOTE | 2024-09-02 15:18 | MHC.OFFVIS ---
Intake Visit Reasons: Remote ILR check- [employer] Allergies Penicillins Allergy (Severe, Verified 04/10/24 11:57) Hives PFSH Medical History Overweight (BMI 25.0-29.9) Depression Acquired hypothyroidism Pure hypercholesterolemia Essential hypertension Hemiparesis affecting right side as late effect of cerebrovascular accident (CVA) CVA (cerebral vascular accident) Surgical History No pertinent past surgical history Family History Other Family history non-contributory Social History Housing: House Patient Tobacco Use Status: Former Tobacco user Tobacco use type: Cigarette Years Smoked: 25+ e-Cigarette/Vaping Use: Never Used service: No Current occupational status: disabled Current occupational exposures/hazards: No Cognitive needs: Yes (cane ) Hearing needs: No Vision needs: Yes Office Procedures Cardiac Device Check Cardiac Device Check Details: Remote implantable loop recorder report generated 08/26/2024. No atrial fibrillation noted. No pauses noted. Rare PVCs noted [id number] Cardiac Interrogation, subcut cardiac rhythm monitor Procedure code (CPT) selection complete Assessment & Plan Assessment & Plan (1) Implantable loop recorder present: Code(s): Z95.818 - Presence of other cardiac implants and grafts Category: Medical Plan: See above Coding Level of Care Code Procedure Only Diagnoses Implantable loop recorder present Z95.818 CPT Codes Cardiac Device Check - Cardiac Device 16: [id number] Cardiac Interrogation, subcut cardiac rhythm monitor ([id number])
== END ==
PROVIDERS: PCP Internal Medicine; Visit Provider Internal Medicine Cardiovascular Disease
DX: I49.3 Ventricular premature depolarization (principal); Z95.818 Presence of other cardiac implants and grafts
CPT/HCPCS: 93298

== ENCOUNTER → 2024-09-25 23:59 | Outpatient (BNV) | payer OTHER, SELFPAY ==
--- NOTE | 2024-09-30 15:43 | MHC.OFFVIS ---
Intake Visit Reasons: Remote ILR check- [employer] Allergies Penicillins Allergy (Severe, Verified 04/10/24 11:57) Hives PFSH Medical History Overweight (BMI 25.0-29.9) Depression Acquired hypothyroidism Pure hypercholesterolemia Essential hypertension Hemiparesis affecting right side as late effect of cerebrovascular accident (CVA) CVA (cerebral vascular accident) Surgical History No pertinent past surgical history Family History Other Family history non-contributory Social History Housing: House Patient Tobacco Use Status: Former Tobacco user Tobacco use type: Cigarette Years Smoked: 25+ e-Cigarette/Vaping Use: Never Used service: No Current occupational status: disabled Current occupational exposures/hazards: No Cognitive needs: Yes (cane ) Hearing needs: No Vision needs: Yes Office Procedures Cardiac Device Check Cardiac Device Check Details: Remote implantable loop recorder report generated 09/25/2024. No pauses or arrhythmias noted [id number] Cardiac Interrogation, subcut cardiac rhythm monitor Procedure code (CPT) selection complete Assessment & Plan Assessment & Plan (1) Implantable loop recorder present: Code(s): Z95.818 - Presence of other cardiac implants and grafts Category: Medical Plan: See above Coding Level of Care Code Procedure Only Diagnoses Implantable loop recorder present Z95.818 CPT Codes Cardiac Device Check - Cardiac Device 16: [id number] Cardiac Interrogation, subcut cardiac rhythm monitor ([id number])
== END ==
PROVIDERS: PCP Internal Medicine; Visit Provider Internal Medicine Cardiovascular Disease
DX: Z45.09 Encounter for adjustment and management of other cardiac device (principal)
CPT/HCPCS: 93298

== ENCOUNTER → 2024-10-25 23:59 | Outpatient (BNV) | payer OTHER, SELFPAY ==
--- NOTE | 2024-10-30 09:08 | MHC.OFFVIS ---
Intake Visit Reasons: Remote ILR check- [employer] Allergies Penicillins Allergy (Severe, Verified 04/10/24 11:57) Hives PFSH Medical History Overweight (BMI 25.0-29.9) Depression Acquired hypothyroidism Pure hypercholesterolemia Essential hypertension Hemiparesis affecting right side as late effect of cerebrovascular accident (CVA) CVA (cerebral vascular accident) Surgical History No pertinent past surgical history Family History Other Family history non-contributory Social History Housing: House Patient Tobacco Use Status: Former Tobacco user Tobacco use type: Cigarette Years Smoked: 25+ e-Cigarette/Vaping Use: Never Used service: No Current occupational status: disabled Current occupational exposures/hazards: No Cognitive needs: Yes (cane ) Hearing needs: No Vision needs: Yes Office Procedures Cardiac Device Check Cardiac Device Check Details: Remote implantable loop recorder report generated 10/25/2024. No pauses or atrial fibrillation noted. Rare PVCs noted [id number] Cardiac Interrogation, subcut cardiac rhythm monitor Procedure code (CPT) selection complete Assessment & Plan Assessment & Plan (1) Implantable loop recorder present: Code(s): Z95.818 - Presence of other cardiac implants and grafts Category: Medical Plan: See above Coding Level of Care Code Procedure Only Diagnoses Implantable loop recorder present Z95.818 CPT Codes Cardiac Device Check - Cardiac Device 16: [id number] Cardiac Interrogation, subcut cardiac rhythm monitor ([id number])
== END ==
PROVIDERS: PCP Internal Medicine; Visit Provider Internal Medicine Cardiovascular Disease
DX: I49.3 Ventricular premature depolarization (principal); Z95.818 Presence of other cardiac implants and grafts
CPT/HCPCS: 93298

== ENCOUNTER → 2024-11-24 23:59 | Outpatient (BNV) | payer OTHER, SELFPAY ==
--- NOTE | 2024-12-01 11:36 | MHC.OFFVIS ---
Intake Visit Reasons: Remote ILR check- [employer] Allergies Penicillins Allergy (Severe, Verified 04/10/24 11:57) Hives PFSH Medical History Overweight (BMI 25.0-29.9) Depression Acquired hypothyroidism Pure hypercholesterolemia Essential hypertension Hemiparesis affecting right side as late effect of cerebrovascular accident (CVA) CVA (cerebral vascular accident) Surgical History No pertinent past surgical history Family History Other Family history non-contributory Social History Housing: House Patient Tobacco Use Status: Former Tobacco user Tobacco use type: Cigarette Years Smoked: 25+ e-Cigarette/Vaping Use: Never Used service: No Current occupational status: disabled Current occupational exposures/hazards: No Cognitive needs: Yes (cane ) Hearing needs: No Vision needs: Yes Office Procedures Cardiac Device Check Cardiac Device Check Details: Remote implantable loop recorder report generated 11/24/2024. No significant pauses or atrial fibrillation noted. Rare PVCs noted [id number] Cardiac Interrogation, subcut cardiac rhythm monitor Procedure code (CPT) selection complete Assessment & Plan Assessment & Plan (1) Implantable loop recorder present: Code(s): Z95.818 - Presence of other cardiac implants and grafts Category: Medical Plan: See above Coding Level of Care Code Procedure Only Diagnoses Implantable loop recorder present Z95.818 CPT Codes Cardiac Device Check - Cardiac Device 16: [id number] Cardiac Interrogation, subcut cardiac rhythm monitor ([id number])
== END ==
PROVIDERS: PCP Internal Medicine; Visit Provider Internal Medicine Cardiovascular Disease
DX: I49.3 Ventricular premature depolarization (principal); Z95.818 Presence of other cardiac implants and grafts
CPT/HCPCS: 93298

== ENCOUNTER 2025-01-06 08:56 | Outpatient (REF) | payer MEDICARE, SELFPAY ==
[2025-01-06 10:15] LABS: MANUAL DIFF FLAG NO
[2025-01-06 10:45] LABS: Hematocrit 40.1 % (37.0-47.0); Hemoglobin 13.2 g/dl (12.0-16.0); Imm Gran Abs Auto 0.01 X10*3/uL (0.00-0.03); Imm Gran Pct Auto 0.2 % (0.0-0.4); Lymphocytes Absolute Auto 1.6 X10*3/uL (1.2-4.9); Mean Corpuscular HGB Conc 32.9 g/dl (31.0-35.0); Mean Corpuscular Hemoglobin 28.9 pg (27.0-33.0); Mean Corpuscular Volume 87.9 fL (80.0-98.0); NRBC Abs Auto 0.000 X10*3/uL (0.0-0.012); NRBC Pct Auto 0.0 /100WBC (0.0-0.2); Platelet Count 234 X10*3/uL (160-400); Red Blood Count 4.56 X10*6/uL (4.20-5.50); White Blood Count 4.7 X10*3/uL (4.8-10.8)
[2025-01-06 10:52] LABS: Appearance Urine Clear; Glucose Urine UA Negative (Negative); PH 5.0 (5.0-9.0); Specific Gravity - Urine >= 1.030 (1.005-1.025)
[2025-01-06 11:12] LABS: Alanine Aminotransferase 16 U/L (0-31); Albumin Level 4.3 g/dL (3.5-5.0); Alkaline Phosphatase 69 U/L (39-117); Anion Gap 11 (12-20); Aspartate Amino Transferase 28 U/L (5-31); Blood Urea Nitrogen 19 mg/dL (9-16); Calcium 9.0 mg/dL (8.4-10.2); Carbon Dioxide 26 mmol/L (22-29); Chloride 109 mmol/L (96-108); Cholesterol 157 mg/dL (<200); Estimated Glomerular Filt Rate > 60; HDL Cholesterol 57 mg/dL (>40); Potassium 3.6 mmol/L (3.3-5.1); Sodium 142 mmol/L (135-145); Total Protein 7.4 g/dL (6.5-8.0); Triglycerides 65 mg/dL (<150)
[2025-01-06 11:13] LABS: Hemoglobin A1C 126.0618 umol/L; Total Hemoglobin (HGBA1C) 3546.0428 umol/L
[2025-01-06 11:31] LABS: Free T4 (Free Thyroxine) 1.37 ng/dL (0.71-1.85); Thyroid Stimulating Hormone 0.48 uIU/mL (0.32-4.0)
[2025-01-06 11:39] LABS: Folate 11.9 ng/mL (> or = 4.0); Vitamin B12 1463 pg/mL (200-900)
== END 2025-01-06 08:57 | disposition home or self-care (01) ==
LOC: HO.LAB 08:56
PROVIDERS: PCP Internal Medicine; Visit Provider Internal Medicine
DX: Z00.00 Encounter for general adult medical examination without abnormal findings (principal); R73.01 Impaired fasting glucose; E78.00 Pure hypercholesterolemia, unspecified; R30.0 Dysuria; E55.9 Vitamin D deficiency, unspecified; E03.9 Hypothyroidism, unspecified; E53.8 Deficiency of other specified B group vitamins; D64.9 Anemia, unspecified; I69.351 Hemiplegia and hemiparesis following cerebral infarction affecting right dominant side; I10 Essential (primary) hypertension; K62.5 Hemorrhage of anus and rectum; F33.9 Major depressive disorder, recurrent, unspecified; E66.9 Obesity, unspecified; Z68.32 Body mass index [BMI] 32.0-32.9, adult; Z71.3 Dietary counseling and surveillance; Z87.891 Personal history of nicotine dependence
CPT/HCPCS: 36415; 80053; 80061; 81003; 82306; 82607; 82746; 83036; 84439; 84443; 85025; 96127

== ENCOUNTER 2025-01-06 08:56 | Outpatient (AMB) | payer OTHER, SELFPAY ==
[2025-01-06 08:58] VITALS: BP 122/78; PULSE 67; O2SAT 99; BMI 32.4
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
--- OUTSIDE RECORDS SUMMARY | 2025-01-06 09:12 | XMS_ITS | Clinical Summary ---
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 Name Role Phone Lam Bhakta DO Primary Care Provider [phone] Medical History Medical History Date Comments Fibromyalgia DX:Fibromyalgia Anxiety disorder DX:Anxiety diso rder Cervical spondylosis DX:Cervical spondylosis Chronic depression DX:Chronic de pression Insomnia DX:Insomnia Chronic diarrhea DX:Chronic diar ida Family History Medical History Relation Name Comments Other: Skin Cancer Brother 1 Lung cancer Brother 2 Testicular cancer Brother 3 with meta Coronary artery disease Mother Alcohol abuse Sister Other: Lupus Sister Relation Name Status Comments Brother 1 Brother 2 Brother 3 Father Mother Sister Alive Social History Tobacco Use Types Packs/Day Years Used Date Smoking Tobacco: Former Cigarettes Smokeless Tobacco: Never Alcohol Use Standard Drinks/Week Comments Yes 0 (1 standard drink = 0.6 oz pur e alcohol) Comments Unknown Sex and Gender Information Value Date Recorded Sex Assigned at Not on file Legal Sex Female 4:29 PM EST Gender Identity Not on file Sexual Orientation Not on file Obstetrics History Plan of Treatment Health Maintenance Due Date Last Done Comments Breast Cancer Screening 1955 DTaP,Tdap,and Td Vaccines (1 - Tdap) 1974 Pneumococcal Vaccine: 50+ Ye ars (1 of 1 - PCV) 2005 Zoster Vaccines (1 of 2) 2005 Cholesterol Screening (Lipid Panel) 05/24/2022 Colorectal Cancer Screening: Colonoscopy 05/24/2022 Depression Screening 05/24/2022 Falls Risk Assessment 05/24/2022 Hepatitis C Screening 05/24/2022 Osteoporosis Screening (Bone Density Screening) 05/24/2022 Social Influencers of Health Screening 05/24/2022 Hypertension/CHF/CAD Annual BMP Blood Test 06/07/2022 COVID-19 Vaccine (1 - 2023-2 5 season) 2024 Influenza Vaccine (#1) 2025 RSV Immunization Adult Patie nts (1 - 1-dose 75+ series) 2030 HIB Vaccines Aged Out No longer eligi ble based on patient's age to complete this topic HPV Vaccines Aged Out No longer eligi ble based on patient's age to complete this topic Hepatitis A Vaccines Aged Out No long er eligible based on patient's age to complete this topic Hepatitis B Vaccines Aged Out No long er eligible based on patient's age to complete this topic IPV Vaccines Aged Out No longer eligi ble based on patient's age to complete this topic MMR Vaccines Aged Out No longer eligi ble based on patient's age to complete this topic Meningococcal ACWY Vaccine Aged Out N o longer eligible based on patient's age to complete this topic Meningococcal B Vaccine Aged Out No l onger eligible based on patient's age to complete this topic RSV Immunization Patients Un margret 20 months Aged Out No longer eligible b ased on patient's age to complete this topic Varicella Vaccines Aged Out No longer eligible based on patient's age to complete this topic Advance Directives Documents on File Type Date Recorded Patient Manager Massage Department Expl anation Health Care Decision (hx) 12/04/2023 AD SEAY DIRECTIVE Health Care Decision (hx) 12/04/2023 AD SEAY DIRECTIVE Care Teams 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
== END 2025-01-06 09:42 | disposition home or self-care (01) ==
LOC: HO.HMCH 08:57
PROVIDERS: PCP Internal Medicine; Visit Provider Internal Medicine
DX: Z00.00 Encounter for general adult medical examination without abnormal findings (principal); I63.9 Cerebral infarction, unspecified; I69.351 Hemiplegia and hemiparesis following cerebral infarction affecting right dominant side; E66.9 Obesity, unspecified; Z68.32 Body mass index [BMI] 32.0-32.9, adult; I10 Essential (primary) hypertension; E78.00 Pure hypercholesterolemia, unspecified; E03.9 Hypothyroidism, unspecified; K62.5 Hemorrhage of anus and rectum; F33.9 Major depressive disorder, recurrent, unspecified; Z12.31 Encounter for screening mammogram for malignant neoplasm of breast; Z13.820 Encounter for screening for osteoporosis

== ENCOUNTER → 2025-04-23 23:59 | Outpatient (BNV) | payer MEDICARE, SELFPAY ==
--- NOTE | 2025-04-28 10:33 | MHC.OFFVIS ---
Intake Visit Reasons: Remote ILR check- [employer] Allergies Penicillins Allergy (Severe, Verified 01/06/25 09:14) Hives [facility] Medical History (Updated 01/06/25 @ 10:06 by Camacho Dickey MD) Obesity (BMI 30-39.9) Overweight (BMI 25.0-29.9) Depression Acquired hypothyroidism Pure hypercholesterolemia Essential hypertension Hemiparesis affecting right side as late effect of cerebrovascular accident (CVA) CVA (cerebral vascular accident) Surgical History No pertinent past surgical history Family History Other Family history non-contributory Social History Housing: House Patient Tobacco Use Status: Former Tobacco user Tobacco use type: Cigarette Years Smoked: 25+ e-Cigarette/Vaping Use: Never Used service: No Current occupational status: disabled Current occupational exposures/hazards: No Cognitive needs: Yes (cane ) Hearing needs: No Vision needs: Yes Office Procedures Cardiac Device Check Cardiac Device Check Details: Remote implantable loop recorder report generated 04/23/2025. Rare PVCs noted. No atrial fibrillation or pauses noted [id number] Cardiac Interrogation, subcut cardiac rhythm monitor Procedure code (CPT) selection complete Assessment & Plan Assessment & Plan (1) Implantable loop recorder present: Code(s): Z95.818 - Presence of other cardiac implants and grafts Category: Medical Plan: See above Coding Level of Care Code Procedure Only Diagnoses Implantable loop recorder present Z95.818 CPT Codes Cardiac Device Check - Cardiac Device 16: [id number] Cardiac Interrogation, subcut cardiac rhythm monitor ([id number])
== END ==
PROVIDERS: PCP Internal Medicine; Visit Provider Internal Medicine Cardiovascular Disease
DX: I49.3 Ventricular premature depolarization (principal); Z95.818 Presence of other cardiac implants and grafts
CPT/HCPCS: 93298

== ENCOUNTER → 2025-05-14 12:42 | Outpatient (BNV) | payer MEDICARE, SELFPAY | PROVIDERS: PCP Internal Medicine | DX: I49.3 Ventricular premature depolarization (principal); Z95.818 Presence of other cardiac implants and grafts | CPT/HCPCS: 93298 ==

== ENCOUNTER → 2025-06-19 16:14 | Outpatient (BNV) | payer MEDICARE, SELFPAY | PROVIDERS: PCP Internal Medicine; Visit Provider Internal Medicine Cardiovascular Disease | DX: I49.3 Ventricular premature depolarization (principal) | CPT/HCPCS: 93298 ==